=== PATIENT | male | born 1975 | race Caucasian/White ===

== ENCOUNTER → 2022-05-08 | Outpatient (CLI) | payer BC | LOC: HEART 5 10:46 | DX: I25.10 Atherosclerotic heart disease of native coronary artery without angina pectoris (principal); R42 Dizziness and giddiness; I21.9 Acute myocardial infarction, unspecified; R00.2 Palpitations; R73.03 Prediabetes ==

== ENCOUNTER → 2022-05-19 | Outpatient (CLI) | payer BC | LOC: ECHO 09:00 → NM 10:00 | DX: I25.10 Atherosclerotic heart disease of native coronary artery without angina pectoris (principal); R42 Dizziness and giddiness; I21.9 Acute myocardial infarction, unspecified; R00.2 Palpitations; R73.03 Prediabetes; R06.02 Shortness of breath | CPT/HCPCS: ECHO; 78452; 93017; 93306; A9502 ==